=== PATIENT | female | born 1950 | race Two or more races ===

== ENCOUNTER 2019-05-26 17:21 | Emergency (ER) | payer OTHER ==
[~2019-05-26] VITALS: Ht 170.2 cm; Wt 78.0 kg
[2019-05-26 19:03] LABS: Basophils # (auto) 0.2 uL; Eosinophils # (auto) 0.3 uL; Eosinophils % (auto) 3.6 % (0.0-7.0); Hematocrit 45.4 % (36.0-46.0); Hemoglobin 15.1 g/dL (12.2-16.2); Lymphocytes # (auto) 1.9 uL; Lymphocytes % (auto) 23.9 % (10.0-50.0); Mean Corpuscular Hemoglobin 29.8 pg (28.0-32.0); Mean Corpuscular Hgb Conc. 33.3 g/dL (32.0-36.0); Mean Corpuscular Volume 89.5 fL (80.0-100.0); Monocytes # (auto) 0.7 uL; Monocytes % (auto) 9.1 % (0.0-12.0); Neutrophils % (auto) 61.4 % (37.0-80.0); Nucleated Red Blood Cells % 0.3 %; Platelet Count (auto) 248 10^3/uL (140-450); Red Blood Cells 5.07 10^6/uL (4.0-5.20); Red Cell Distribution Width 15.5 % (11.8-14.3); White Blood Cell 8.1 10^3/uL (4.4-10.8)
[2019-05-26 19:23] LABS: Albumin 3.5 g/dL (3.4-5.0); Anion Gap 8 (5-15); BUN/Creatinine Ratio 27.4; Blood Urea Nitrogen 20 mg/dL (7-18); Calcium 8.5 mg/dL (8.5-10.1); Carbon Dioxide 22 mmol/L (21-32); Chloride 111 mmol/L (98-107); GFR African American 102 mL/min; GFR Non-African American 84 mL/min; Glucose 102 mg/dL (74-106); Magnesium 2.5 mg/dL (1.6-2.6); Potassium 3.9 mmol/L (3.5-5.1); Sodium 141 mmol/L (136-145)
[2019-05-26 19:28] LABS: Alanine Aminotransferase 14 U/L (13-56); Alkaline Phosphatase 94 U/L (45-117); Aspartate Aminotransferase 16 U/L (15-37); Bilirubin, Total 0.3 mg/dL (0.2-1.0); Total Protein 7.7 g/dL (6.4-8.2)
[2019-05-26 19:34] LABS: INR < 0.93 (0.9-1.15); Partial Thromboplastin Time 27.1 sec (23.64-32.05)
[2019-05-26] MEDS ORDERED: ASPirin-EC 81 mg tab PO ONE (20:45)
[2019-05-26] MEDS ORDERED: SOD CHL 0.45% 1,000 ML IV ONE (21:00)
[2019-05-26 21:56] VITALS: BP 125/56
== END 2019-05-26 22:20 | disposition home or self-care (01) ==
LOC: ER 17:23
DX: R07.9 Chest pain, unspecified (principal); E11.9 Type 2 diabetes mellitus without complications; E78.5 Hyperlipidemia, unspecified; I10 Essential (primary) hypertension; Z88.0 Allergy status to penicillin; Z90.49 Acquired absence of other specified parts of digestive tract
CPT/HCPCS: 36415; 71045; 80053; 83735; 83880; 84484; 85025; 85379; 85610; 85730; 93005; 94761; 99284; J7030

== ENCOUNTER 2019-06-11 20:00 | Emergency (ER) | payer OTHER ==
[~2019-06-11] VITALS: Ht 170.2 cm; Wt 78.0 kg
[2019-06-11 20:41] VITALS: BP 113/66
[2019-06-11 22:16] LABS: Basophils # (auto) 0.1 uL; Basophils % (auto) 0.5 % (0.0-2.0); Eosinophils # (auto) 0.1 uL; Eosinophils % (auto) 0.4 % (0.0-7.0); Hematocrit 45.6 % (36.0-46.0); Hemoglobin 15.1 g/dL (12.2-16.2); Lymphocytes # (auto) 0.4 uL; Lymphocytes % (auto) 3.2 % (10.0-50.0); Mean Corpuscular Hemoglobin 29.8 pg (28.0-32.0); Mean Corpuscular Volume 90.1 fL (80.0-100.0); Monocytes # (auto) 0.3 uL; Monocytes % (auto) 2.5 % (0.0-12.0); Neutrophils # (auto) 12.6 uL; Neutrophils % (auto) 93.4 % (37.0-80.0); Nucleated Red Blood Cells % 0.2 %; Platelet Count (auto) 257 10^3/uL (140-450); Red Blood Cells 5.06 10^6/uL (4.0-5.20); Red Cell Distribution Width 15.4 % (11.8-14.3); White Blood Cell 13.5 10^3/uL (4.4-10.8)
[2019-06-11 22:17] LABS: Urine Bacteria MANY /hpf (None Seen); Urine Blood 2+ /uL (Negative); Urine Mucus MODERATE (None Seen); Urine Specific Gravity 1.018 (1.001-1.035); Urine WBC 482 /hpf (0 - 5)
[2019-06-11 22:30] LABS: Potassium 3.6 mmol/L (3.5-5.1)
[2019-06-11 22:36] LABS: Albumin 3.8 g/dL (3.4-5.0); Bilirubin, Total 0.5 mg/dL (0.2-1.0); Calcium 8.4 mg/dL (8.5-10.1)
== END 2019-06-12 03:45 | disposition left against medical advice (07) ==
LOC: ER 20:05
DX: R10.30 Lower abdominal pain, unspecified (principal); R11.2 Nausea with vomiting, unspecified; Z53.21 Procedure and treatment not carried out due to patient leaving prior to being seen by health care provider
CPT/HCPCS: 36415; 74176; 80053; 81001; 82962; 84484; 85025

== ENCOUNTER 2021-12-28 12:49 | Emergency (ER) | payer OTHER ==
[~2021-12-28] VITALS: Ht 172.7 cm; Wt 49.9 kg
[2021-12-28 14:09] LABS: Basophils # (auto) 0.1 10 ^3/uL (0-0.2); Basophils % (auto) 1.3 % (0.0-2.0); Eosinophils # (auto) 0.1 10 ^3/uL (0-0.8); Eosinophils % (auto) 3.1 % (0.0-7.0); Hemoglobin 10.2 g/dL (12.2-16.2); Lymphocytes # (auto) 0.3 10 ^3/uL (0.4-5.4); Mean Corpuscular Hemoglobin 33.5 pg (28.0-32.0); Mean Corpuscular Hgb Conc. 33.9 g/dL (32.0-36.0); Mean Corpuscular Volume 98.8 fL (80.0-100.0); Monocytes # (auto) 0.7 10 ^3/uL (0-1.3); Monocytes % (auto) 16.8 % (0.0-12.0); Neutrophils # (auto) 2.9 10 ^3/uL (1.6-8.6); Neutrophils % (auto) 70.8 % (37.0-80.0); Nucleated Red Blood Cells % 0.1 %; Red Blood Cells 3.04 10^6/uL (4.0-5.20); Red Cell Distribution Width 21.1 % (11.8-14.3); White Blood Cell 4.1 10^3/uL (4.4-10.8)
[2021-12-28] MEDS ORDERED: MORPHINE SULFATE INJECTION 2 MG/ML SYRG IV ONE (14:15)
[2021-12-28] MEDS ORDERED: MORPHINE SULFATE INJECTION 2 MG/ML SYRG ONE (14:15)
[2021-12-28] MEDS ORDERED: ONDANSETRON HCL 4 MG/2 ML VIAL IV ONE (14:15)
[2021-12-28] MEDS ORDERED: ONDANSETRON HCL 4 MG/2 ML VIAL ONE (14:16)
[2021-12-28 14:27] LABS: Albumin 2.4 g/dL (3.4-5.0); BUN/Creatinine Ratio 30.2; Calcium 7.9 mg/dL (8.5-10.1); Potassium 3.5 mmol/L (3.5-5.1)
[2021-12-28 14:31] LABS: INR 1.2 (0.9-1.15); Partial Thromboplastin Time 32.9 sec (23.6-33.0)
[2021-12-28 14:32] LABS: Bilirubin, Total 0.7 mg/dL (0.2-1.0); Total Protein 7.8 g/dL (6.4-8.2)
[2021-12-28 17:00] VITALS: BP 96/40
== END 2021-12-28 17:48 | disposition home or self-care (01) ==
LOC: EDBD 12:49 → ER 12:49
DX: C23 Malignant neoplasm of gallbladder (principal); E46 Unspecified protein-calorie malnutrition; Z68.1 Body mass index [BMI] 19.9 or less, adult; I10 Essential (primary) hypertension; E11.9 Type 2 diabetes mellitus without complications; E78.5 Hyperlipidemia, unspecified; Z90.49 Acquired absence of other specified parts of digestive tract; Z88.0 Allergy status to penicillin
CPT/HCPCS: 36415; 71045; 74176; 80053; 84484; 85025; 85610; 85730; 96374; 96375; 99285; J2270; J2405